=== PATIENT | female | born 1960 | race Caucasian/White ===

== ENCOUNTER 2017-02-19 00:39 | Emergency (ER) | payer OTHER ==
[~2017-02-19] VITALS: Ht 170.2 cm; Wt 88.0 kg
[2017-02-19 00:43] VITALS: BP 129/67; PULSE 66; RESP 16; TEMP 97.5; O2SAT 98
[2017-02-19] MEDS ORDERED: FLUO-1 PO (00:51)
[2017-02-19] MEDS ORDERED: INDO50CA PO (00:51)
--- NOTE | 2017-02-19 02:29 | RADRPT ---
EXAM DATE/TIME: 02/19/2017 02:02 [place] COMPARISON: No previous studies available for comparison. INDICATIONS : Right shoulder pain post fall. MEDICAL HISTORY : None. SURGICAL HISTORY : None. ENCOUNTER: Initial ACUITY: 1 day PAIN SCORE: 10/10 LOCATION: Right arm FINDINGS: There is a mildly displaced fracture of the proximal humerus at the humeral neck extending into the g reater tuberosity. No dislocation. CONCLUSION: 1. Mildly displaced proximal right humeral fracture. Michael Knight MD on February 19, 2017 at 2:24 Board Certified Radiologist. This report was verified electronically.
--- NOTE | 2017-02-19 02:34 | PD ---
HPI Chief Complaint: Injury Time Seen by Provider: 01:50 Travel History International Travel<30 days: No Contact w/Intl Traveler<30days: No Traveled to known affect area: No History of Present Illness HPI 56-year-old female presents to the emergency department by private transportation for evaluation of right shoulder injury and concern for possible dislocation. Patient reports at midnight she had a non-syncopal trip and fall on her shoes caught on the rug. Patient states she did not hit her head did not lose consciousness did not injure her neck back chest ribs abdomen pelvis or other extremity. Patient is right-handed. Patient has no numbness tingling or weakness of the right upper extremity. Patient has isolated pain to the right shoulder. Patient rates pain 9/10 in intensity. Patient has history of chronic arthritis for which she is prescribed Naprosyn. Patient's had previous partial thyroidectomy. Patient does not smoke cigarettes or drink alcohol. Patient is a respiratory therapist. PFSH Past Medical History Narrative Medical Depression arthritis; partial thyroidectomy breast surgery occasional alcohol use nursing notes reviewed Arthritis: Yes Depression: Yes Diminished Hearing: No Tetanus Vaccination: < 5 Years Influenza Vaccination: Yes ?: Not Past Surgical History Other Surgery: Yes (thyroidectomy, breast reduction) Social History Alcohol Use: Yes Tobacco Use: No Substance Use: No Allergies-Medications (Allergen,Severity, Reaction): Coded Allergies: Sulfa (Verified Allergy, Severe, 02/19/17) Reported Meds & Prescriptions Reported Meds & Active Scripts Active Reported Prozac (Fluoxetine HCl) 10 Mg Cap 10 Mg PO DAILY Indomethacin 50 Mg Cap 50 Mg PO BID Take with food, milk, or antacids to decrease stomach adverse effects. Review of Systems Except as stated in HPI: all other systems reviewed are Neg Physical Exam Narrative GENERAL: Well-developed well-nourished female in no acute distress no respiratory distress; GCS 15 SKIN: Warm and dry. HEAD: Atraumatic. Normocephalic. EYES: Pupils equal and round. No scleral icterus. No injection or drainage. ENT: No nasal bleeding or discharge. Mucous membranes pink and moist. NECK: Trachea midline. No JVD. CARDIOVASCULAR: Regular rate and rhythm. RESPIRATORY: No accessory muscle use. Clear to auscultation. Breath sounds equal bilaterally. GASTROINTESTINAL: Abdomen soft, non-tender, nondistended. Hepatic and splenic margins not palpable. MUSCULOSKELETAL: Extremities without clubbing, cyanosis, or edema. No obvious deformities. Mild soft tissue deformity of the right shoulder tenderness to palpation; pain with attempted range of motion; distally extremity is neurovascular tendon intact capillary refill is brisk and less than 2 seconds per digit radial ulnar pulses are 2+ to palpation. NEUROLOGICAL: Awake and alert. No obvious cranial nerve deficits. Motor grossly within normal limits. Five out of 5 muscle strength in the arms and legs. Normal speech. PSYCHIATRIC: Appropriate mood and affect; insight and judgment normal. Data Data Last Documented VS Vital Signs Date Time Temp Pulse Resp B/P Pulse Ox O2 Delivery O2 Flow Rate FiO2 02/19/17 00:43 97.5 66 16 129/67 98 Room Air Orders Shoulder, Limited(2vws) (02/19/17 ) Ice/Cold Pack (02/19/17 01:50) Ondansetron Odt (Zofran Odt) (02/19/17 02:45) Oxycodone-Acetamin 5-325 Mg (Percocet (02/19/17 02:45) Ibuprofen (Motrin) (02/19/17 02:45) Splint Or Brace Apply/Monitor (02/19/17 02:37) MDM Medical Decision Making Medical Screen Exam Complete: Yes Emergency Medical Condition: Yes Medical Record Reviewed: Yes Interpretation(s) R shoulder xr: FINDINGS: There is a mildly displaced fracture of the proximal humerus at the humeral neck extending into the greater tuberosity. No dislocation. CONCLUSION: 1. Mildly displaced proximal right humeral fracture. Michael Knight MD on February 19, 2017 at 2:24 Board Certified Radiologist. This report was verified electronically. Differential Diagnosis Contusion fracture subluxation dislocation Narrative Course Patient applied ice to right shoulder imaging studies ordered Imaging study consistent with fracture of the proximal humerus at the neck no subluxation no dislocation Patient placed in sling and swath and pain medication administered Diagnosis Primary Impression: Shoulder fracture, right Qualified Code: S42.91XA - Shoulder fracture, right, closed, initial encounter Referrals: Orthopaedic Surgeon 2 days Patient Instructions: General Instructions, Narcotic given in the ED Med/Other Pt SpecificInfo: Prescription(s) given Scripts Ondansetron Odt (Zofran Odt)4 Mg Tab4 Mg SL Q6HR PRN (Nausea/Vomiting) #10 TAB Ref 0 Prov:Baylee West MD 02/19/17 Oxycodone-Acetaminophen (Percocet)5-325 mg Tab1-2 Tab PO Q6H PRN (PAIN) #15 TAB Ref 0 Prov:Baylee West MD 02/19/17 Disposition: 01 DISCHARGE HOME Condition: Stable Baylee West MD February 19, 2017 02:34
[2017-02-19] MEDS ORDERED: PERC5TAB12 PO (02:40)
[2017-02-19] MEDS ORDERED: ZOFR4TAB3 SL (02:40)
[2017-02-19] MEDS ORDERED: IBUPROFEN 600 MG TAB PO ONE (02:45)
[2017-02-19] MEDS ORDERED: oxyCODONE/ACETAMINOPHEN 5 MG/325 MG TAB PO ONE (02:45)
[2017-02-19] MEDS ORDERED: ONDANSETRON ODT 4 MG TAB PO ONE (02:45)
== END 2017-02-19 03:16 | disposition home or self-care (01) ==
LOC: EDBD → NEPC 00:39
DX: S42.91XA Fracture of right shoulder girdle, part unspecified, initial encounter for closed fracture (principal); W18.09XA Striking against other object with subsequent fall, initial encounter
CPT/HCPCS: 29240; 73030